=== PATIENT | female | born 1940 | race Two or more races ===

== ENCOUNTER 2023-12-15 11:41 | Inpatient (IN) | payer MEDICARE, MEDICAID ==
[~2023-12-15] VITALS: Ht 152.4 cm; Wt 65.9 kg
[2023-12-15 13:21] LABS: Basophils # (auto) 0 10 ^3/uL (0-0.2); Basophils % (auto) 0.2 % (0.0-2.0)
[2023-12-15 13:23] LABS: Eosinophils # (auto) 0.1 10 ^3/uL (0-0.8); Eosinophils % (auto) 1.6 % (0.0-7.0); Hematocrit 26.3 % (36.0-46.0); Hemoglobin 8.7 g/dL (12.2-16.2); Lymphocytes # (auto) 1.6 10 ^3/uL (0.4-5.4); Lymphocytes % (auto) 18.1 % (10.0-50.0); Mean Corpuscular Hemoglobin 34.3 pg (28.0-32.0); Mean Corpuscular Hgb Conc. 33.1 g/dL (32.0-36.0); Mean Corpuscular Volume 103.9 fL (80.0-100.0); Monocytes # (auto) 0.7 10 ^3/uL (0-1.3); Monocytes % (auto) 7.7 % (0.0-12.0); Neutrophils # (auto) 6.2 10 ^3/uL (1.6-8.6); Neutrophils % (auto) 72.4 % (37.0-80.0); Red Blood Cells 2.53 10^6/uL (4.0-5.20); Red Cell Distribution Width 13.9 % (11.8-14.3); White Blood Cell 8.6 10^3/uL (4.4-10.8)
[2023-12-15] MEDS: SODIUM CHLORIDE 0.9% 1,000 ML IV ONE (13:25)
[2023-12-15 13:39] LABS: INR 1.44 (0.9-1.15); Partial Thromboplastin Time 33.6 SEC (24.5-34.5); Prothrombin Time 14.9 sec (9.3-11.8)
[2023-12-15 13:41] LABS: Alanine Aminotransferase 11 U/L (7-40); Albumin 3.8 g/dL (3.2-4.8); Alkaline Phosphatase 80 U/L (46-116); Anion Gap 10 (5-15); Aspartate Aminotransferase 16 U/L (13-40); BUN/Creatinine Ratio 7.8 (10.0-20.0); Bilirubin, Total 0.3 mg/dL (0.2-1.0); Blood Urea Nitrogen 17 mg/dL (9-23); Carbon Dioxide 23 mmol/L (20-30); Chloride 109 mmol/L (98-107); Glucose 90 mg/dL (74-106); Potassium 5.2 mmol/L (3.5-5.1); Sodium 142 mmol/L (136-145)
[2023-12-15 13:42] LABS: Total Protein 6.4 g/dL (5.7-8.2)
[2023-12-15 13:43] VITALS: PULSE 75; RESP 18; O2SAT 95
[2023-12-15 13:59] LABS: Lactic Acid w/Reflex 5.4 mmol/L (0.4-2.0)
[2023-12-15 14:33] VITALS: PULSE 77; RESP 20; O2SAT 94
[2023-12-15 15:04] LABS: Base Excess -6.5 mmol/L (-2.0-2.0)
[2023-12-15] MEDS: SODIUM BICARB 8.4% 50Meq/50ml SYR Vial IV ONE (15:07)
[2023-12-15] MEDS: SODIUM CHLORIDE 0.9% 1,750 ML IV ONE (15:08)
[2023-12-15] MEDS ORDERED: ONDANSETRON HCL 4 MG/2 ML VIAL IV PRN (15:45)
[2023-12-15] MEDS ORDERED: MORPHINE SULFATE INJ 2 MG/ml SYRG IV PRN (15:45)
[2023-12-15] MEDS ORDERED: DEXTROSE (50%) 50ML SYRG IV PRN (15:45)
[2023-12-15] MEDS ORDERED: NITROGLYCERIN 0.4 MG SL TAB SL PRN (15:45)
[2023-12-15 16:11] LABS: Urine Bacteria FEW /hpf (None Seen); Urine Blood Negative /uL (Negative); Urine Clarity Clear (Clear); Urine Color Yellow (Yellow); Urine Hyaline Cast FEW /lpf (0 - 2); Urine Protein, UAD 1+ (Negative); Urine Specific Gravity 1.022 (1.001-1.035); Urine Urobilinogen Normal (Negative); Urine WBC 2 /hpf (0 - 5); Urine pH 5.5 (5.0-9.0)
[2023-12-15] MEDS: InsuLIN REG 1unit/0.01ml Soln (100units/ml) SC SCH ×2 (17:00→22:48)
[2023-12-15] MEDS: ACCU-CHEK COMFORT CURVE STRIP VI SCH (17:00)
[2023-12-15] MEDS: SODIUM ZIRCONIUM CYCL 10 GM PAK PO ONE (17:35)
[2023-12-15] MEDS: cefTRIAXone 1GM/50ML D5W 50 ML IV ONE (17:35)
[2023-12-15 19:30] VITALS: PULSE 93; RESP 21; O2SAT 92
[2023-12-15] MEDS ORDERED: APIX5TAB4 PO (22:22)
[2023-12-15] MEDS ORDERED: ATOR80TA PO (22:23)
[2023-12-15] MEDS ORDERED: CILO100T3 PO (22:26)
[2023-12-15] MEDS ORDERED: CHOL1TAB30 PO (22:26)
[2023-12-15] MEDS ORDERED: BACL20TA PO (22:26)
[2023-12-15] MEDS ORDERED: CLOP75TA70 PO (22:26)
[2023-12-15] MEDS ORDERED: CALC500T53 PO (22:26)
[2023-12-15] MEDS: ATORVASTATIN 20 MG TAB PO SCH (22:41)
[2023-12-15] MEDS: APIXABAN 5 MG TAB PO SCH (22:41)
[2023-12-15] MEDS: MONTELUKAST SODIUM 10 MG TAB PO SCH (22:42)
[2023-12-15] MEDS: ACETAMINOPHEN 325 MG TAB PO PRN (22:49)
[2023-12-15 22:50] VITALS: PULSE 78; RESP 17; O2SAT 96
[2023-12-16] VITALS (9 sets, daily range): BP systolic 88–161; BP diastolic 35–75; PULSE 69–89; RESP 14–19; TEMP 79–98; O2SAT 94–99
[2023-12-16 06:50] LABS: Chloride 110 mmol/L (98-107); Potassium 4.5 mmol/L (3.5-5.1); Sodium 143 mmol/L (136-145)
[2023-12-16 06:51] LABS: Anion Gap 9 (5-15); Carbon Dioxide 24 mmol/L (20-30)
[2023-12-16 06:52] LABS: Calcium 8.3 mg/dL (8.7-10.4)
[2023-12-16 06:55] LABS: Basophils # (auto) 0 10 ^3/uL (0-0.2); Eosinophils # (auto) 0.2 10 ^3/uL (0-0.8); Hemoglobin 7.4 g/dL (12.2-16.2); Lymphocytes # (auto) 1.5 10 ^3/uL (0.4-5.4); Mean Corpuscular Hgb Conc. 33.3 g/dL (32.0-36.0); Monocytes # (auto) 0.6 10 ^3/uL (0-1.3); Red Cell Distribution Width 13.5 % (11.8-14.3)
[2023-12-16 06:56] LABS: Glucose 80 mg/dL (74-106)
[2023-12-16 06:57] LABS: BUN/Creatinine Ratio 8.8 (10.0-20.0); Blood Urea Nitrogen 14 mg/dL (9-23)
[2023-12-16 06:58] LABS: Basophils % (auto) 0.2 % (0.0-2.0); Eosinophils % (auto) 2.7 % (0.0-7.0); Hematocrit 22.4 % (36.0-46.0); Lymphocytes % (auto) 20.6 % (10.0-50.0); Mean Corpuscular Hemoglobin 34.5 pg (28.0-32.0); Mean Corpuscular Volume 103.8 fL (80.0-100.0); Neutrophils # (auto) 5.1 10 ^3/uL (1.6-8.6); Neutrophils % (auto) 68.5 % (37.0-80.0); Nucleated Red Blood Cells % 0.1 %; Red Blood Cells 2.15 10^6/uL (4.0-5.20); White Blood Cell 7.4 10^3/uL (4.4-10.8)
[2023-12-16] MEDS: cefTRIAXone 1GM/50ML D5W 50 ML IV SCH (09:53)
[2023-12-16] MEDS: LACTATED RINGER'S 1,000 ML IV SCH (15:30)
[2023-12-17] VITALS (8 sets, daily range): BP systolic 136–198; BP diastolic 67–78; PULSE 60–85; RESP 16–18; TEMP 98–98.4; O2SAT 96–100
[2023-12-17 06:11] LABS: Basophils # (auto) 0 10 ^3/uL (0-0.2); Eosinophils # (auto) 0.1 10 ^3/uL (0-0.8); Lymphocytes # (auto) 1.4 10 ^3/uL (0.4-5.4); Mean Corpuscular Hemoglobin 34.7 pg (28.0-32.0); Monocytes # (auto) 0.7 10 ^3/uL (0-1.3); Monocytes % (auto) 9.5 % (0.0-12.0); Nucleated Red Blood Cells % 0.1 %
[2023-12-17 06:16] LABS: Basophils % (auto) 0.2 % (0.0-2.0); Eosinophils % (auto) 1.8 % (0.0-7.0); Hematocrit 25.5 % (36.0-46.0); Hemoglobin 8.5 g/dL (12.2-16.2); Mean Corpuscular Hgb Conc. 33.5 g/dL (32.0-36.0); Mean Corpuscular Volume 103.6 fL (80.0-100.0); Neutrophils # (auto) 5.3 10 ^3/uL (1.6-8.6); Neutrophils % (auto) 70.5 % (37.0-80.0); Red Blood Cells 2.46 10^6/uL (4.0-5.20); Red Cell Distribution Width 13.8 % (11.8-14.3); White Blood Cell 7.6 10^3/uL (4.4-10.8)
[2023-12-17] MEDS ORDERED: LISI40TA16 PO (17:11)
[2023-12-17] MEDS ORDERED: METF-929 PO (17:11)
[2023-12-17] MEDS ORDERED: NIFE90TA75 PO (17:11)
[2023-12-17] MEDS ORDERED: METO25TA93 PO (17:11)
[2023-12-17] MEDS: LABETALOL HCL 5 MG/ML ML 20ML VIAL IV PRN (17:25)
[2023-12-17] MEDS: NIFEdipine ER 30 MG TAB PO ONE (19:33)
[2023-12-18] VITALS (8 sets, daily range): BP systolic 152–179; BP diastolic 68–87; PULSE 49–116; RESP 18–20; TEMP 97.8–98.8; O2SAT 95–100
[2023-12-18 05:33] LABS: Basophils # (auto) 0 10 ^3/uL (0-0.2); Basophils % (auto) 0.5 % (0.0-2.0); Eosinophils # (auto) 0.2 10 ^3/uL (0-0.8); Eosinophils % (auto) 2.1 % (0.0-7.0); Hematocrit 26.2 % (36.0-46.0); Hemoglobin 8.5 g/dL (12.2-16.2); Lymphocytes # (auto) 1.6 10 ^3/uL (0.4-5.4); Lymphocytes % (auto) 20.9 % (10.0-50.0); Mean Corpuscular Hemoglobin 33.3 pg (28.0-32.0); Mean Corpuscular Hgb Conc. 32.5 g/dL (32.0-36.0); Mean Corpuscular Volume 102.5 fL (80.0-100.0); Monocytes # (auto) 0.9 10 ^3/uL (0-1.3); Neutrophils # (auto) 4.8 10 ^3/uL (1.6-8.6); Neutrophils % (auto) 64.5 % (37.0-80.0); Nucleated Red Blood Cells % 0.1 %; Red Blood Cells 2.56 10^6/uL (4.0-5.20); Red Cell Distribution Width 13.8 % (11.8-14.3); White Blood Cell 7.5 10^3/uL (4.4-10.8)
[2023-12-18] MEDS: LISINOPRIL 20 MG TAB PO ONE (12:00)
[2023-12-18] MEDS: hydrALAZINE HCL 20 MG/ML VL IV PRN (18:17)
[2023-12-19 01:00] VITALS: BP 167/68; PULSE 106; RESP 20; TEMP 97.7; O2SAT 97
[2023-12-19 05:00] VITALS: BP 163/62; PULSE 93; RESP 17; TEMP 97.8; O2SAT 97
[2023-12-19 08:00] VITALS: PULSE 92
[2023-12-19 08:13] VITALS: BP 141/80; PULSE 114; RESP 20; TEMP 98.3; O2SAT 96
[2023-12-19] MEDS: LISINOPRIL 20 MG TAB PO SCH (08:39)
[2023-12-19] MEDS ORDERED: CIPR-173 PO (11:18)
[2023-12-19 12:03] VITALS: BP 141/80; PULSE 80; TEMP 36.8
== END 2023-12-19 12:28 | disposition home or self-care (01) | DRG 689 ==
LOC: EDSEX 11:41 → ER 11:41 → TELE 15:37 → TELE-WESTW 15:44
PROVIDERS: ADMIT Family Medicine; ATTEND Family Medicine
DX: N30.00 Acute cystitis without hematuria (principal); N17.0 Acute kidney failure with tubular necrosis; D68.9 Coagulation defect, unspecified; E87.21 Acute metabolic acidosis; I95.2 Hypotension due to drugs; E11.22 Type 2 diabetes mellitus with diabetic chronic kidney disease; E78.00 Pure hypercholesterolemia, unspecified; I12.9 Hypertensive chronic kidney disease with stage 1 through stage 4 chronic kidney disease, or unspecified chronic kidney disease; J44.89 Other specified chronic obstructive pulmonary disease; S50.02XA Contusion of left elbow, initial encounter; N18.9 Chronic kidney disease, unspecified; T50.995A Adverse effect of other drugs, medicaments and biological substances, initial encounter; E86.0 Dehydration; Z86.73 Personal history of transient ischemic attack (TIA), and cerebral infarction without residual deficits; Z87.891 Personal history of nicotine dependence; W18.39XA Other fall on same level, initial encounter; Y93.89 Activity, other specified; Y92.89 Other specified places as the place of occurrence of the external cause; Y99.8 Other external cause status
CPT/HCPCS: 36415; 36600; 70450; 71045; 73080; 80048; 80053; 81001; 82270; 82565; 82805; 82962; 83605; 84484; 85025; 85610; 85730; 86850; 86900; 86901; 87040; 87086; 93005; 96361; 96365; 96375; G0378; J1815